=== PATIENT | female | born 2005 | race Caucasian/White ===

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

== ENCOUNTER 2025-03-22 06:15 | Emergency (ER) | payer OTHER ==
[~2025-03-22] VITALS: Ht 167.6 cm; Wt 72.2 kg
[2025-03-22] MEDS ORDERED: IBUP600T42 PO (07:20)
[2025-03-22] MEDS: IBUPROFEN 600 MG TAB PO ONE (07:23)
[2025-03-22] MEDS: ACETAMINOPHEN 325 MG TAB PO ONE (07:23)
[2025-03-22 07:32] VITALS: BP 119/78; TEMP 97.2; O2SAT 99
== END 2025-03-22 07:33 | disposition home or self-care (01) ==
LOC: M ED 06:15
DX: R68.84 Jaw pain (principal); F10.10 Alcohol abuse, uncomplicated; Z79.1 Long term (current) use of non-steroidal anti-inflammatories (NSAID)

== ENCOUNTER 2025-03-30 20:50 | Emergency (ER) | payer OTHER ==
[~2025-03-30] VITALS: Ht 167.6 cm; Wt 74.6 kg
[~2025-03-30 20:50] MED LIST: IBUP600T42 PO
[2025-03-30 20:54] VITALS: BP 124/70; TEMP 98.4; O2SAT 99
== END 2025-03-30 21:01 | disposition left against medical advice (07) ==
LOC: M ED 20:50
DX: Z53.21 Procedure and treatment not carried out due to patient leaving prior to being seen by health care provider (principal)